=== PATIENT | male | born 1935 | race Caucasian/White ===

== ENCOUNTER 2016-10-26 08:00 | Outpatient (CLI) | payer MEDICARE, OTHER ==
[~2016-10-26 08:00] MED LIST: ADVAIR 250/501 DISK; ADVAIR 250/501 DISK INH; ASPIRIN EC81 MG PO; IPRAT-ALBUT 0.5-3 ML UPD; PRAVACHOL20 MG PO; PROAIR HFA8.5 GM INH; PROTONIX40 MG PO; SINGULAIR10 MG PO; SPIRIVA18 MCG INH; TOPROL XL50 MG PO; ULTRAM50 MG PO; ZANTAC150 MG PO
== END 2016-10-26 23:59 | disposition home or self-care (01) ==
LOC: D.RT 08:00
DX: J44.9 Chronic obstructive pulmonary disease, unspecified (principal)

== ENCOUNTER → 2017-07-13 19:25 | Outpatient (CLI) | payer MEDICARE, OTHER ==
[2014-12-10 10:28] VITALS: BMI 37.3
== END | disposition home or self-care (01) ==
LOC: D.SLEEP 19:25
DX: G47.36 Sleep related hypoventilation in conditions classified elsewhere (principal)

== ENCOUNTER → 2017-10-07 08:44 | Outpatient (CLI) | payer MEDICARE, OTHER ==
[~2017-10-07] VITALS: Ht 188 cm; Wt 125.0 kg
--- NOTE | ~2017-10-07 | HEMODYNAMI ---
PATIENT:GRAEME ROGERS MEDICAL RECORD: [id number] : 39 LOCATION:[facility] ADMISSION DATE: 10/07/17 Generatedon:10/07/201713:45 Patient name: GRAEME ROGERS Patient #: [id number] SSN: : 1935 Date of study: 10/07/2017 Page: Of Hemodynamic Procedure Report Patient Data Patient Demographics Procedure consent was obtained First Name: GRAEME Gender: Male Last Name: SUE : 1935 Middle Initial: E Age: 82 year(s) Patient #: [id number] Race: Unknown Additional ID: [id number] Contact details Address: [address] [place] [address] [place] State: [place] City: [place] Zip code: [address] Past Medical History Allergies: No known allergies Admission Admission Data Admission Date: 10/07/2017 Admission Time: 8:44 Height (in.): 6 BSA: 0.41 (m2) Height (cm.): 15.24 BMI: 5624.56 (kg/m2) Weight (lbs.): 288 Weight (kg.): 130.63 Lab Results Lab Result Date: 10/07/2017 Lab Result Time: 0:00 Biochemistry Name Units Result Min Max BUN mg/dl 23 --(----)-* 7 18 Creatinine mg/dl 1.3 --(---*)-- 0.6 1.3 CBC Name Units Result Min Max Hemoglobin g/dl 13.1 -*(----)-- 13.5 17.5 Procedure Procedure Types Cath Procedure Diagnostic Procedure C [facility] w/Coronaries PCI Procedure Coronary Stent Coronary Stent Initial Procedure Description Procedure Date Procedure Date: 10/07/2017 Procedure Start Time: 13:29 Procedure End Time: 13:44 Procedure Staff Name Function Rainer Parks MD Performing Physician Amadeo Wagner RT Monitor Flory Mars RT Scrub Ivan Dove RN Nurse Procedure Data Cath Procedure Fluoroscopy Diagnostic fluoroscopy Total fluoroscopy Time: 3.2 time: 3.2 min min Diagnostic fluoroscopy Total fluoroscopy dose: 997 dose: 997 mGy mGy Contrast Material Contrast Material Type Amount (ml) Isovue 300 73 Entry Location Entry Primary Successful Side Size Upsize Upsize Entry Closure Ac ccessful Closure Location (Fr) 1 (Fr) 2 (Fr) Remarks Device Remarks Radial Right 6 Fr Mechanical artery Short Compression Estimated blood loss: 10 ml Diagnostic catheters Device Type Used For End Catheter Placement DIAGNOSTIC [place] 110cm 5 Procedure Fr catheter ([id number]) Procedure Complications No complications Procedure Medications Medication Administration Route Dosage 0.9% NaCl I.V. 100 ml/hr Oxygen etCO2 Nasal cannula 2 l/min Heparin Flush Bag added to field 2 bags (1000units/500ml NS) Lidocaine 2% added to field 20 Radial Cocktail added to field 1 syringe (Verapomil 2mg/Nitro 400mcg/Heparin 1500units) Versed I.V. 2 mg Fentanyl I.V. 100 mcg Versed I.V. 1 mg Radial Cocktail I.A. 1 syringe (Verapomil 2mg/Nitro 400mcg/Heparin 1500units) Heparin Bolus I.V. 4000 units Integrilin (Bolus I.V. 11.3 ml 2mg/ml) Integrilin (Bolus wasted 8.7 ml 2mg/ml) Plavix P.O. 600 mg Hemodynamics Rest BSA: 0.41 (m2) HGB: 13.1 (g/dl) O2 Consumption: Estimated: 46.13 (ml/min) O2 Con sumption indexed: Estimated:112.51 (ml/min/m) Heart Rate: 66 (bpm) Pressure Samples Time Site Value (mmHg) Purpose Heart Use Rate(bpm) 13:32 LV 66/1,12 Snapshot 64 Snapshots Pre Cath Intra NCS Post Cath Vital Signs Time Heart Resp SPO2 etCO2 NIBP (mmHg) Rhythm Pain Sedation Rate (ipm) (%) (mmHg) Status Level (bpm) 13:14:41 64 19 98 37.4 185/97(153) NSR 0 (11) 10(A) , No pain 13:19:32 58 12 97 18.7 158/83(137) NSR 0 (11) 10(A) , No pain 13:24:27 59 11 98 39.7 157/81(132) NSR 0 (11) 10(A) , No pain 13:29:22 62 11 98 36.7 161/88(138) NSR 0 (11) 9(A) , No pain 13:34:07 64 14 100 33.7 133/73(106) NSR 0 (11) 9(A) , No pain 13:38:56 65 15 97 39 147/81(115) NSR 0 (11) 10(A) , No pain 13:43:48 65 13 99 37.4 150/83(126) NSR 0 (11) 10(A) , No pain Medications Time Medication Route Dose Verified Delivered Reason Not es Effectiveness by by 13:15:41 0.9% NaCl I.V. 100 Ivan Ivan Per physician ml/hr Derrell Dove RN RN 13:15:50 Oxygen etCO2 2 l/min Ivan Ivan Per physician Nasal Derrell Dove cannula RN RN 13:16:00 Heparin Flush added 2 bags Ivan Ivan used for Bag to Derrell Dove procedure (1000units/500ml RN RN NS) 13:16:10 Lidocaine 2% added 20ml Ivan Ivan for local to vial Lorigan Derrell anesthetic RN RN 13:16:24 Radial Cocktail added 1 Ivan Ivan used for (Verapomil to syringe Lorkaren Dove procedure 2mg/Nitro field SMITH RN 400mcg/Heparin 1500units) 13:23:43 Versed I.V. 2 mg Ivan Ivan for sedation Derrell Dove RN RN 13:23:51 Fentanyl I.V. 100 mcg Ivan Ivan for sedation Derrell Dove RN RN 13:25:51 Versed I.V. 1 mg Ivan Ivan for sedation Derrell Dove RN RN 13:31:17 Radial Cocktail I.A. 1 Ivan Rainer for (Verapomil syringe Derrell Parks MD vasodilation 2mg/Nitro RN 400mcg/Heparin 1500units) 13:37:31 Heparin Bolus I.V. 4000 Ivan Ivan for units Derrell Dove anticoagulation RN RN 13:37:49 Integrilin I.V. 11.3 ml Ivan Ivan for (Bolus 2mg/ml) Derrell Dove antiplatelet RN RN therapy 13:38:30 Integrilin wasted 8.7 ml Ivna Ivan to sharp's (Bolus 2mg/ml) Lorigan Alessandraigan RN RN 13:41:19 Plavix P.O. 600 mg Ivan Love for Derrell Dove antiplatelet RN RN therapy Procedure Log Time Note 12:50:43 Time tracking: Regular hours (M-F 7:00 - 5:00) 12:50:47 Plan of Care:Hemodynamics will remain stable., Cardiac rhythm will remain stable., Comfort level will be maintained., Respiratory function will remain adequate., Patient/ family verbilizes understanding of procedure., Procedure tolerated without complication., Recovers from procedure without complications.. 12:50:50 Signed procedure consent form obtained from patient. 12:50:59 H&P Date Dictated: 09/13/2017 Within 30 days and on chart., H&P Addendum completed by physician on day of procedure. (MUST COMPLETE FOR ALL OUTPATIENTS). 12:51:17 Patient Weight : 288 lbs 12:51:23 Patient Height : 6 inches 12:54:31 Ivan Dove RN sent for patient. Start room use. 12:54:51 Patient allergic to No known allergies 12:55:18 Lab Result : Creatinine 1.3 mg/dl 12:55:18 Lab Result : BUN 23 mg/dl 12:55:18 Lab Result : Hemoglobin 13.1 g/dl 13:01:05 Patient received from Pre/Post Procedure Room to CCL 1 Alert and oriented. Tansferred to table in Supine position. 13:01:07 Warm blankets applied, and amie hugger turned on for patient comfort. 13:01:08 Correct patient and procedure confirmed by team. 13:01:08 ECG and BP/O2 sat monitors applied to patient. 13:01:09 Pre-procedure instructions explained to patient. 13:01:09 Pre-op teaching completed and patient verbalized understanding. 13:01:11 Family in waiting room. 13:01:13 Patient NPO since Midnight. 13:13:34 Vital chart was started 13:13:35 Baseline sample Acquired. 13:13:38 Rhythm: sinus rhythm 13:13:40 Full Disclosure recording started 13:13:45 Is the patient allergic to Iodine/contrast media? No. 13:13:47 Is patient on blood thinner?No 13:13:56 Patient diabetic? No. 13:13:58 Previous problem with sedation/anesthesia? No ? 13:13:59 Snore? Yes 13:14:00 Sleep apnea? Yes 13:14:00 Deviated septum? No 13:14:01 Opens mouth fully? Yes 13:14:02 Sticks out tongue? Yes 13:14:06 Airway obstruction? Yes COPD 13:14:12 Dentures? No ? 13:14:13 Modified Juan Francisco's test Ulnar < 7 seconds 13:14:16 Patient pain scale 0/10 ?. 13:14:29 IV patent on arrival in left hand with 0.9% NaCl at [facility]. 13:14:40 Lab results completed and on chart. 13:14:42 Right Radial & Right Groin area was prepped with chlora-prep and draped in sterile fashion 13:14:43 Alarms reviewed by R. N. 13:14:43 Sharps counted by scrub and verified by R.N. 13:14:45 Use device set Radial Dx or PCI 13:14:46 ACIST Syringe (15676) opened to sterile field. 13:14:47 Medline Cath Pack ([id number]) opened to sterile field. 13:14:47 Bag Decanter (2002S) opened to sterile field. 13:14:48 ACIST Hand Control (16642) opened to sterile field. 13:14:49 ACIST Manifold (09662) opened to sterile field. 13:14:50 Tegaderm 4 x 4 (1626W) opened to sterile field. 13:14:50 MBrace Wrist Support ([id number]) opened to sterile field. 13:14:51 SHEATH 6Fr Prelude Radial ([id number]) opened to sterile field. 13:14:52 DIAGNOSTIC WIRE .035 260cm J wire (275210) opened to sterile field. 13:15:41 0.9% NaCl 100 ml/hr I.V. was administered by Ivan Dove RN; Per physician; 13:15:50 Oxygen 2 l/min etCO2 Nasal cannula was administered by Ivan Dove RN; Per physician; 13:16:00 Heparin Flush Bag (1000units/500ml NS) 2 bags added to field was administered by Ivan Dove RN; used for procedure; 13:16:10 Lidocaine 2% 20ml vial added to field was administered by Ivan Dove RN; for local anesthetic; 13:16:24 Radial Cocktail (Verapomil 2mg/Nitro 400mcg/Heparin 1500units) 1 syringe added to field was administered by Ivan Dove RN; used for procedure; 13::07 Zero performed for pressure channel P1 13::17 Physician arrived 13:: --------ALL STOP TIME OUT------ 13::18 Final Timeout: patient, procedure, and site verified with staff and physician. All members of the team are in agreement. 13::55 Right Radial & Right Groin site verified by team. 13::58 Physical assessment completed. ASA score P 2 - A patient with mild systemic disease as per Rainer Parks MD. 13:23:00 Sedation plan: IV Moderate Sedation Medication:Versed, Fentanyl 13::43 Versed 2 mg I.V. was administered by Ivan Dove RN; for sedation; :23:51 Fentanyl 100 mcg I.V. was administered by Ivan Dove RN; for sedation; 13:25:51 Versed 1 mg I.V. was administered by Ivan Dove RN; for sedation; 13:29:14 Procedure started. 13:29:20 Local anesthetic to right radial artery with Lidocaine 2% by Rainer Parks MD.INITIAL ACCESS ONLY 13:29:29 A 6 Fr Short sheath was inserted into the Right Radial artery 13:30:04 A DIAGNOSTIC [place] 110cm 5 Fr catheter (916376) was advanced over the wire and used for Procedure. 13:31:17 Radial Cocktail (Verapomil 2mg/Nitro 400mcg/Heparin 1500units) 1 syringe I.A. was administered by Rainer Parks MD; for vasodilation; 13:32:17 LV gram done using MCDONALD 13:32:20 Injector settings: Ml/sec: 5, Volume: 15, 13:32:22 LV hemodynamics recorded. 13:32:25 EF : 55 % 13:32:27 LCA angiography performed. 13:33:29 RCA angiography performed. 13:33:51 INFLATOR Merit BasixCompak (GP4974) opened to sterile field. 13:33:59 CHOICE PT Extra Support 182cm wire ([id number]) opened to sterile field. 13:34:24 RCA angiography performed. 13:34:57 GUIDE 6FR XBLAD 3.5 SH catheter ([id number]) opened to sterile field. 13:36:36 Catheter removed. 13:36:46 6 Fr XBLAD 3.5 guide catheter was inserted over the wire 13:37:11 CHOICE PT ES wire advanced. 13:37:31 Heparin Bolus 4000 units I.V. was administered by Ivan Dove RN; for anticoagulation; 13:37:49 Integrilin (Bolus 2mg/ml) 11.3 ml I.V. was administered by Ivan Dove RN; for antiplatelet therapy; 13:38:30 Integrilin (Bolus 2mg/ml) 8.7 ml wasted was administered by Ivan Dove RN; to sharp's; 13:38:57 Place stent Inflation Number: 1 A JOAN RX 3.0 x 22 stent ([id number]) was prepped and advanced across the Prox LAD. The stent was deployed at 21 ROSA for 0:10 (min:sec). 13:39:40 Stent catheter was removed intact over wire. 13:39:40 Wire removed. 13:39:42 Guide catheter removed. 13:39:46 TR BAND Large ([id number]) opened to sterile field. 13:39:57 Sheath removed intact; hemostasis achieved with Mechanical Compression to the Right Radial artery. 13:39:59 Procedure ended.(Physican Out) 13:40:08 Fluoroscopy time 03.20 minutes. 13:40:11 Flurop Dose total: 997 13:40:11 Fluoroscopy dose: 997 mGy 13:40:17 Contrast amount:Isovue 300 73ml. 13:40:19 Sharps counted by scrub and verified by R.N. 13:40:20 TR band inflated with 12cc of air. 13:41:13 Insertion/operative site no bleeding no hematoma. 13:41:18 Post right radial artery:stable, soft, clean and dry 13:41:19 Plavix 600 mg P.O. was administered by Ivan Dove RN; for antiplatelet therapy; 13:41:28 Post Procedure Pulses reassessed and unchanged 13:41:30 Post-procedure physical assessment completed. ASA score P 2 - A patient with mild systemic disease as per Rainer Parks MD. 13:43:19 Post procedure rhythm: unchanged. 13:43:21 Estimated blood loss: 10 ml 13:43:23 Post procedure instruction explained to patient.Patient verbalizes understanding. 13:43:23 Patient needs reinforcement of post procedure teaching. 13:43:32 Procedure type changed to Cath procedure, Diagnostic procedure, LHC, LHC w/Coronaries, PCI procedure, Coronary Stent, Coronary Stent Initial 13:44:24 Procedure and supply charges have been captured, reviewed, submitted and are correct. 13:44:26 Procedure Complication : No complications 13:44:28 Vital chart was stopped 13:44:28 See physician's report for complete and final results. 13:44:30 Report given to Pre/Post Procedure Room. 13:44:32 Patient transfered to Pre/Post Procedure Room with Stretcher. 13:44:35 Procedure ended. 13:44:35 Full Disclosure recording stopped 13:44:38 End room use (Document Last) Intervention Summary Intervention Notes Time ActionType Lesion and Equipment Used Action# Pressure Duration Attributes 13:38:57 Place stent Prox LAD JOAN RX 3.0 x 1 21 00:10 22 stent ([id number]) Device Usage Item Name Manufacture Quantity Catalog Number Hospital Part Current Minimal Lot# / Charge Number Stock Stock Serial# Code ACIST Syringe Acist 1 66743 698746 891965 [id number] 20 (43203) [employer] Medline Cath Cardinal 1 [id number] 135791 43039 231747 5 [facility] ([id number]) Bag Decanter Microtek 1 2001S 440908 37475 631711 5 (2002S) Medical Inc. ACIST Hand Acist 1 70692 790820 694051 415013 5 Control (58428) [employer] Inc ACIST Manifold Acist 1 51822 864603 803614 512817 5 (31983) [employer] Systems Inc Tegaderm 4 x 4 3M 1 1626W 937831 281001 531218 5 (1626W) MBrace Wrist Advanced 1 140-0250-00 923886 80209 304673 5 Support Vascular ([id number]) Dynamics SHEATH 6Fr Merit 1 [id number] 124912 791700 726721 5 Prelude Radial Medical ([id number]) DIAGNOSTIC WIRE [facility] [place] 1 699263 621324 872079 322782 30 .035 260cm J wire (349729) INFLATOR Merit Merit 1 [id number] 053241 513800 244819 15 [facility] ([id number]) CHOICE PT Extra [place] 1 [id number] 696131 839701 010675 5 Support 182cm Scientific wire ([id number]) DIAGNOSTIC Terumo 1 40-7583 721544 259563 460444 5 [place] 110cm 5 Fr catheter (093553) GUIDE 6FR XBLAD Cardinal 1 [id number] 799738 224034 352680 3 3.5 [facility] ([id number]) JOAN RX 3.0 x Medtronic 1 [id number] 474075 7310369 937408 5 [id number] 22 stent ([id number]) TR BAND Large Terumo 1 [id number] 201410 835090 739771 40 ([id number]) Signature Audit [place] Stage Time Signature Unsigned Intra-Procedure 10/07/2017 Amadeo Wagner 1:45:39 PM RT(R) Signatures Monitor : Amadeo Wagner RT Signature : Date : Time : [place] [id number] MISSY [place], [place] [address]
--- NOTE | ~2017-10-07 | OP ---
PATIENT NAME: GRAEME ROGERS MEDICAL RECORD: [id number] :39 LOCATION:[facility] ADMISSION DATE: SURGEON: RICHARD CARLSON MD DATE OF OPERATION: 10/07/2017 PROCEDURES: 1. PTCA and stent of LAD. 2. Left heart catheterization. 3. Selective coronary angiography. 4. Left ventriculogram. INDICATION: Angina and coronary artery disease. PROCEDURE IN DETAIL: After informed consent was obtained and after detailed explanation of risks, benefits as well as alternative therapies, the patient elected to proceed with angiogram and angioplasty. The right radial area was prepped and draped in normal sterile fashion. Right radial artery was cannulated via modified Seldinger technique with placement of 6-Austrian sheath. All catheters exchanged through this sheath. FINDINGS: The left ventriculogram was performed in standard 30-degree MCDONALD view, reveals good cardiac wall motion throughout all segments. Overall ejection fraction estimated 60%. SELECTIVE CORONARY ANGIOGRAPHY: 1. Left main is with no significant angiographic disease. 2. Left anterior descending has previously placed stent with up to 80% in-stent restenosis. 3. Left circumflex has mild irregularities, but no flow-limiting stenosis. 4. Right coronary has mild irregularities, but no flow-limiting stenosis. PTCA AND STENT OF THE LAD: The stent used is a 3.0 x 22-mm Lexa taken to 21 atmospheres. Result was 0% residual stenosis. OVERALL IMPRESSION: Successful PTCA and stent of the LAD going from 80% in-stent restenosis to 0% residual stenosis. TRANSINT:[id number] Voice Confirmation ID: [id number] DOCUMENT ID: [id number] RICHARD CARLSON MD at 1806 CC: [id number] DICTATION DATE: 10/07/17 1348 AIRCRAFT TIME CLERK: 10/07/17 1419 DEP CLI 10/07/17 [place] [id number] [place] [id number]
[~2017-10-07 08:44] MED LIST changes: +COZAAR100 MG PO; +FLOMAX0.4 MG PO; +PLAVIX75 MG PO; +ROBAXIN500 MG PO
[2017-10-07 09:27] LABS: BASOPHILS 0.2 % (0-2); EOSINOPHILS 1.7 % (0-7); HEMATOCRIT 40.7 % (42.0-54.0); HEMOGLOBIN 13.1 g/dL (13.5-17.5); IMMATURE GRANULOCYTES 0.3 % (0-5); LYMPHOCYTES 28.5 % (15-50); MCHC 32.2 g/dL (31.0-37.0); MCV 93.3 fL (80.0-100.0); MEAN PLATELET VOLUME 10.4 fL (7.4-10.4); MONOCYTES 7.8 % (2-11); NEUTROPHILS 61.5 % (40-80); PLATELET COUNT 196 10x3/uL (130-400); RBC 4.36 10x6/uL (4.20-6.10); RDW 15.4 % (11.5-14.5); WBC 6.6 10x3/uL (4.8-10.8)
[2017-10-07 09:30] VITALS: BP 143/83; Ht 188 cm; Wt 125.0 kg
[2017-10-07 09:37] LABS: ANION GAP 9.5 mmol/L (8-16); CALCIUM 8.6 mg/dL (8.5-10.1); CREATININE - SERUM 1.3 mg/dL (0.6-1.3); POTASSIUM - SERUM 4.5 mmol/L (3.5-5.1)
== END | disposition home or self-care (01) ==
LOC: D.CATH 08:44
PROVIDERS: Internal Medicine Interventional Cardiology
DX: I25.119 Atherosclerotic heart disease of native coronary artery with unspecified angina pectoris (principal); T82.855A Stenosis of coronary artery stent, initial encounter; Z01.812 Encounter for preprocedural laboratory examination
CPT/HCPCS: 93458; C9600

== ENCOUNTER → 2018-05-24 09:29 | Outpatient (CLI) | payer MEDICARE, OTHER ==
[2017-10-07 09:30] VITALS: BMI 35.4
== END | disposition home or self-care (01) ==
LOC: D.RT 09:29
PROVIDERS: ATTEND Internal Medicine Pulmonary Disease
DX: J44.9 Chronic obstructive pulmonary disease, unspecified (principal); J20.9 Acute bronchitis, unspecified

== ENCOUNTER → 2019-06-19 13:16 | Outpatient (CLI) | payer MEDICARE, OTHER ==
[2017-10-07 09:30] VITALS: BMI 35.4
== END | disposition home or self-care (01) ==
LOC: D.RT 05-17 11:00 → D.RAD 05-17 11:45
PROVIDERS: ATTEND Internal Medicine Pulmonary Disease
DX: J44.9 Chronic obstructive pulmonary disease, unspecified (principal)